=== PATIENT | male | born 1995 | race Caucasian/White ===

== ENCOUNTER 2017-10-13 16:30 | Emergency (ER) | payer OTHER ==
[~2017-10-13] VITALS: Ht 167.6 cm; Wt 71.2 kg
[2017-10-13 16:55] VITALS: BP 127/71
--- NOTE | 2017-10-13 17:06 | NUR ---
PT AMBULATED TO BED 4.
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
[2017-10-13 18:06] VITALS: BP 132/70
--- NOTE | 2017-10-13 18:06 | NUR ---
Patient discharged with v/s stable. Written and verbal after care instructions given and explained. Patient alert, oriented and verbalized understanding of instructions. Ambulatory with steady gait. All questions addressed prior to discharge. ID band removed. Patient advised to follow up with PMD. Rx of CIPROFLOXACIN 0.2% OTIC SOLUTION given. Patient educated on indication of medication including possible reaction and side effects. Opportunity to ask questions provided and answered.
== END 2017-10-13 18:06 | disposition home or self-care (01) ==
LOC: MED 16:30
DX: H72.91 Unspecified perforation of tympanic membrane, right ear (principal); H91.91 Unspecified hearing loss, right ear
CPT/HCPCS: 99283

== ENCOUNTER 2020-06-01 21:43 | Emergency (ER) | payer OTHER ==
[~2020-06-01] VITALS: Ht 165.1 cm; Wt 72.6 kg
[2020-06-01 22:21] VITALS: BP 117/67
--- NOTE | 2020-06-01 22:28 | NUR ---
PT AMBULATED TO BED 07 STEADY GAIT
--- NOTE | 2020-06-01 22:30 | NUR ---
PT TAKEN TO BED 5
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
--- NOTE | 2020-06-01 22:47 | NUR ---
Dr. Quiroga examining patient.
[2020-06-01] MEDS ORDERED: IBUPROFEN 800 MG TAB PO ONE (22:55)
--- NOTE | 2020-06-01 23:02 | NUR ---
X-Ray at bedside.
[2020-06-02 00:11] VITALS: BP 117/67
== END 2020-06-02 00:11 | disposition home or self-care (01) ==
LOC: MED 21:43
DX: S99.821A Other specified injuries of right foot, initial encounter (principal); W22.8XXA Striking against or struck by other objects, initial encounter; Y93.89 Activity, other specified; Y92.89 Other specified places as the place of occurrence of the external cause; Y99.8 Other external cause status
CPT/HCPCS: 29515; 73630; 99283; Q0092

== ENCOUNTER 2021-04-11 16:02 | Emergency (ER) | payer OTHER ==
[~2021-04-11] VITALS: Ht 167.6 cm; Wt 72.6 kg
[2021-04-11 16:30] VITALS: BP 105/60
[2021-04-11] MEDS ORDERED: DOCU-299 PO (16:53)
[2021-04-11] MEDS ORDERED: IBUP-1842 PO (16:53)
[2021-04-11 17:17] VITALS: BP 105/60
--- NOTE | 2021-04-11 17:17 | NUR ---
Patient discharged with v/s stable. Written and verbal after care instructions given and explained. Patient alert, oriented and verbalized understanding of instructions. Ambulatory with steady gait. All questions addressed prior to discharge. ID band removed. Patient advised to follow up with PMD. Rx of colace, ibuprofen given. Patient educated on indication of medication including possible reaction and side effects. Opportunity to ask questions provided and answered.
== END 2021-04-11 17:17 | disposition home or self-care (01) ==
LOC: MED 16:02
DX: S39.011A Strain of muscle, fascia and tendon of abdomen, initial encounter (principal); X50.0XXA Overexertion from strenuous movement or load, initial encounter; Y93.89 Activity, other specified; Y92.89 Other specified places as the place of occurrence of the external cause; Y99.8 Other external cause status
CPT/HCPCS: 99282

== ENCOUNTER 2022-06-21 12:46 | Emergency (ER) | payer OTHER ==
[~2022-06-21] VITALS: Ht 167.6 cm; Wt 75.7 kg
[~2022-06-21 12:46] MED LIST: DOCU-299 PO; IBUP-1842 PO
[2022-06-21 12:50] VITALS: BP 137/75
[2022-06-21] MEDS ORDERED: HYD1C TP (13:39)
[2022-06-21] MEDS ORDERED: DIPH25TA53 PO (13:39)
[2022-06-21] MEDS ORDERED: LORA10TA19 PO (13:39)
--- NOTE | 2022-06-21 13:46 | NUR ---
Patient discharged with v/s stable. Written and verbal after care instructions given and explained. Patient alert, oriented and verbalized understanding of instructions. Ambulatory with steady gait. All questions addressed prior to discharge. ID band removed. Patient advised to follow up with PMD. Rx of CLARITIN, BENADRYL, HYDROCORTISONE CREAM given. Patient educated on indication of medication including possible reaction and side effects. Opportunity to ask questions provided and answered.
== END 2022-06-21 13:46 | disposition home or self-care (01) ==
LOC: MED 12:46
DX: T78.49XA Other allergy, initial encounter (principal); Z79.1 Long term (current) use of non-steroidal anti-inflammatories (NSAID); Z79.899 Other long term (current) drug therapy; X58.XXXA Exposure to other specified factors, initial encounter
CPT/HCPCS: 99282

== ENCOUNTER 2022-06-23 21:37 | Emergency (ER) | payer OTHER ==
[~2022-06-23] VITALS: Ht 167.6 cm; Wt 77.1 kg
[~2022-06-23 21:37] MED LIST changes: +DIPH25TA53 PO; +HYD1C TP; +LORA10TA19 PO
--- NOTE | 2022-06-23 22:30 | NUR ---
PATIETN TO LOBBY
[2022-06-23 22:32] VITALS: BP 162/89
--- NOTE | 2022-06-23 22:51 | NUR ---
URINE COLLECTED AND WALKED TO LAB
[2022-06-23 22:57] LABS: APPEARANCE,URINE CLEAR (CLEAR); BILIRUBIN,URINE NEGATIVE (NEGATIVE); BLOOD, URINE 1+ (NEGATIVE); COLOR,URINE YELLOW (YELLOW); LEUKOCYTE ESTERASE ,URINE NEGATIVE (NEGATIVE); NITRITE, URINE NEGATIVE (NEGATIVE); UGLUCOSE NEGATIVE (NEGATIVE)
[2022-06-23 23:14] LABS: WBC,URINE 0-5 /HPF (0-5)
[2022-06-24] MEDS ORDERED: cefTRIAXone 1,000 MG VIAL IM ONE (00:20)
[2022-06-24] MEDS ORDERED: CEPH-588 PO (00:21)
[2022-06-24 01:30] VITALS: BP 123/80
== END 2022-06-24 01:30 | disposition home or self-care (01) ==
LOC: MED 21:37
DX: N39.0 Urinary tract infection, site not specified (principal); Z20.2 Contact with and (suspected) exposure to infections with a predominantly sexual mode of transmission
CPT/HCPCS: 81001; 87491; 96372; 99283; J0696

== ENCOUNTER 2022-07-07 15:53 | Emergency (ER) | payer OTHER ==
[~2022-07-07] VITALS: Ht 167.6 cm; Wt 79.4 kg
[~2022-07-07 15:53] MED LIST changes: +CEPH-588 PO
[2022-07-07 15:59] VITALS: BP 137/83
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
[2022-07-07 17:41] VITALS: BP 131/74
--- NOTE | 2022-07-07 17:41 | NUR ---
Patient discharged with v/s stable. Written and verbal after care instructions given. Patient verbalized understanding. Ambulatory with steady gait. All questions addressed prior to discharge. Advised to follow up with PMD.
--- NOTE | 2022-07-07 21:14 | NUR ---
The patient's care was reviewed and supervised by Bessy Wheat RN, RN.
== END 2022-07-07 17:41 | disposition home or self-care (01) ==
LOC: MED 15:53
DX: N39.0 Urinary tract infection, site not specified (principal)
CPT/HCPCS: 81002; 99282

== ENCOUNTER 2022-07-19 16:42 | Emergency (ER) | payer OTHER ==
[~2022-07-19] VITALS: Ht 167.6 cm; Wt 77.1 kg
[2022-07-19 16:57] VITALS: BP 153/83
--- NOTE | 2022-07-19 17:05 | NUR ---
Irma rivera in [facility] - 07/19/22 at 1711 by MNURBMD CALLED TO TRIAGE NO RESPONSE
[2022-07-19 19:16] LABS: BASOPHILS # (AUTO) 0.1 K/uL (0.00-0.22); BASOPHILS % (AUTO) 0.9 % (0.0-2.0); EOSINOPHILS # (AUTO) 0.1 K/uL (0-0.4); EOSINOPHILS % (AUTO) 1.9 % (0.0-4.0); HEMATOCRIT 44.2 % (36-52); HEMOGLOBIN 14.9 g/dL (12.0-18.0); LYMPHOCYTES # (AUTO) 2.1 K/uL (2.0-11.5); LYMPHOCYTES % (AUTO) 29.3 % (20.5-51.1); MEAN CORPUSCULAR HEMOGLOBIN 30 pg (27-31); MEAN CORPUSCULAR HGB CONC 34 g/dL (33-37); MEAN CORPUSCULAR VOLUME 89.4 fL (80-94); MONOCYTES # (AUTO) 0.4 K/uL (0.8-1.0); MONOCYTES % (AUTO) 5.9 % (1.7-9.3); NEUTROPHILS # (AUTO) 4.5 K/uL (1.8-7.7); PLATELET COUNT (AUTO) 231 K/uL (140-450); RED BLOOD CELL COUNT(AUTO) 4.95 MIL/uL (4.20-6.10); RED CELL DISTRIBUTION WIDTH 13.1 % (11.6-13.7); WHITE BLOOD COUNT (AUTO) 7.2 K/uL (4.8-10.8)
[2022-07-19 19:31] LABS: ANION GAP 12.5 (8-16); CARBON DIOXIDE 26.3 mmol/L (21-32); POTASSIUM 3.8 mmol/L (3.5-5.1); TOTAL BILIRUBIN 0.3 mg/dL (0.0-1.0)
--- NOTE | 2022-07-19 19:31 | NUR ---
URINE COLLECTED AND SENT TO LAB
[2022-07-19 19:44] LABS: ALBUMIN 4.4 g/dL (3.4-5.0); CREATININE 1.1 mg/dL (0.6-1.3)
[2022-07-19] MEDS ORDERED: HYDR-636 PO (20:08)
[2022-07-19] MEDS ORDERED: DIPH25TA53 PO (20:08)
[2022-07-19] MEDS ORDERED: PRED20TA5 PO (20:08)
[2022-07-19 20:15] VITALS: BP 121/79
--- NOTE | 2022-07-19 20:15 | NUR ---
Patient discharged with v/s stable. Written and verbal after care instructions given and explained. Patient alert, oriented and verbalized understanding of instructions. Ambulatory with steady gait. All questions addressed prior to discharge. ID band removed. Patient advised to follow up with PMD. Rx of BENADRYL, HYDROXYZINE, DELTASONE given. Patient educated on indication of medication including possible reaction and side effects. Opportunity to ask questions provided and answered.
== END 2022-07-19 20:15 | disposition home or self-care (01) ==
LOC: MED 16:42
DX: L29.9 Pruritus, unspecified (principal); Z79.2 Long term (current) use of antibiotics; Z79.899 Other long term (current) drug therapy; Z79.1 Long term (current) use of non-steroidal anti-inflammatories (NSAID)
CPT/HCPCS: 36415; 80053; 85025; 87491; 99283

== ENCOUNTER 2022-09-27 21:24 | Emergency (ER) | payer OTHER ==
[~2022-09-27] VITALS: Ht 167.6 cm; Wt 78.5 kg
[~2022-09-27 21:24] MED LIST changes: +HYDR-636 PO; +PRED20TA5 PO
[2022-09-27 21:36] VITALS: BP 128/67
--- NOTE | 2022-09-27 21:39 | NUR ---
TO LOBBY A/W BED AMBULATORY
[2022-09-28 00:31] LABS: BASOPHILS # (AUTO) 0.1 K/uL (0.00-0.22); BASOPHILS % (AUTO) 0.8 % (0.0-2.0); EOSINOPHILS # (AUTO) 0.2 K/uL (0-0.4); EOSINOPHILS % (AUTO) 2.6 % (0.0-4.0); HEMATOCRIT 44.2 % (36-52); HEMOGLOBIN 14.8 g/dL (12.0-18.0); LYMPHOCYTES # (AUTO) 2.2 K/uL (2.0-11.5); MEAN CORPUSCULAR HEMOGLOBIN 30 pg (27-31); MEAN CORPUSCULAR HGB CONC 33 g/dL (33-37); MEAN CORPUSCULAR VOLUME 88.7 fL (80-94); MONOCYTES # (AUTO) 0.5 K/uL (0.8-1.0); MONOCYTES % (AUTO) 8.4 % (1.7-9.3); NEUTROPHILS # (AUTO) 3.4 K/uL (1.8-7.7); NEUTROPHILS % (AUTO) 53.2 % (42.2-75.2); PLATELET COUNT (AUTO) 209 K/uL (140-450); RED BLOOD CELL COUNT(AUTO) 4.99 MIL/uL (4.20-6.10); RED CELL DISTRIBUTION WIDTH 12.9 % (11.6-13.7); WHITE BLOOD COUNT (AUTO) 6.3 K/uL (4.8-10.8)
[2022-09-28 00:35] LABS: APPEARANCE,URINE CLEAR (CLEAR); BILIRUBIN,URINE NEGATIVE (NEGATIVE); BLOOD, URINE TRACE-I (NEGATIVE); COLOR,URINE YELLOW (YELLOW); LEUKOCYTE ESTERASE ,URINE NEGATIVE (NEGATIVE); NITRITE, URINE NEGATIVE (NEGATIVE); UGLUCOSE NEGATIVE (NEGATIVE)
--- NOTE | 2022-09-28 00:36 | NUR ---
PT TAKEN TO BED 4
--- NOTE | 2022-09-28 00:41 | NUR ---
RECEIVED IN BED 4 WITH C/O A/P X 3-5 DAYS.ABD PAIN FOR 3-5 DAYS
[2022-09-28 00:43] LABS: BARBITURATE, URINE NEGATIVE ng/ml (NEG <=200); BENZODIAZEPINE, URINE NEGATIVE ng/mL (NEG <=200); CANNABINOID, URINE NEGATIVE ng/mL (NEG <=50); COCAINE, URINE NEGATIVE ng/mL (NEG <=300); OPIATE, URINE NEGATIVE ng/mL (NEG <=2000); PHENCYCLIDINE SCREEN,URINE NEGATIVE ng/mL (NEG <=25)
[2022-09-28 00:45] LABS: RBC,URINE 0-5 /HPF (0-5); WBC,URINE 0-5 /HPF (0-5)
[2022-09-28 00:49] LABS: ALBUMIN 4.8 g/dL (3.4-5.0); ANION GAP 13.2 (8-16); CARBON DIOXIDE 28.6 mmol/L (21-32); CREATININE 1.1 mg/dL (0.6-1.3); POTASSIUM 3.8 mmol/L (3.5-5.1); TOTAL BILIRUBIN 0.2 mg/dL (0.0-1.0)
--- NOTE | 2022-09-28 00:56 | NUR ---
Dr. Donis examining patient.
--- NOTE | 2022-09-28 03:10 | NUR ---
ua obtained and sent to lab
[2022-09-28] MEDS ORDERED: NAPR-1704 PO (04:02)
[2022-09-28 04:10] VITALS: BP 128/67
== END 2022-09-28 04:10 | disposition home or self-care (01) ==
LOC: MED 21:24
DX: R10.30 Lower abdominal pain, unspecified (principal)
CPT/HCPCS: 36415; 80053; 80305; 81001; 83690; 85025; 99284

== ENCOUNTER 2022-11-27 20:31 | Emergency (ER) | payer OTHER ==
[~2022-11-27] VITALS: Ht 167.6 cm; Wt 78.5 kg
[~2022-11-27 20:31] MED LIST changes: +NAPR-1704 PO
[2022-11-27 21:08] VITALS: BP 142/76
--- NOTE | 2022-11-28 02:53 | NUR ---
Dr. Vitale examining patient.
[2022-11-28] MEDS ORDERED: DEXAMETHASONE 10 MG/ML VIAL PO ONE (02:55)
[2022-11-28 03:21] VITALS: BP 132/76
--- NOTE | 2022-11-28 03:21 | NUR ---
Patient discharged with v/s stable. Written and verbal after care instructions given and explained. Patient verbalized understanding. Ambulatory with steady gait. All questions addressed prior to discharge. Advised to follow up with PMD.
== END 2022-11-28 03:21 | disposition home or self-care (01) ==
LOC: MED 21:04
DX: J04.0 Acute laryngitis (principal); Z79.899 Other long term (current) drug therapy
CPT/HCPCS: 99283; J1100

== ENCOUNTER 2023-01-25 17:31 | Emergency (ER) | payer OTHER ==
[~2023-01-25] VITALS: Ht 157.5 cm; Wt 76.7 kg
[2023-01-25 17:54] VITALS: BP 135/72
--- NOTE | 2023-01-25 18:20 | NUR ---
Patient discharged with v/s stable. Written and verbal after care instructions FOR FOLLICULITIS given and explained. Patient verbalized understanding. Ambulatory with steady gait. All questions addressed prior to discharge. Advised to follow up with PMD.
== END 2023-01-25 18:20 | disposition home or self-care (01) ==
LOC: MED 17:31
DX: R21 Rash and other nonspecific skin eruption (principal); Z79.899 Other long term (current) drug therapy
CPT/HCPCS: 87491; 99283

== ENCOUNTER 2023-01-29 22:47 | Emergency (ER) | payer OTHER ==
[~2023-01-29] VITALS: Ht 167.6 cm; Wt 79.4 kg
[2023-01-29 23:00] VITALS: BP 140/75
--- NOTE | 2023-01-29 23:03 | NUR ---
to lobby a/w bed ambulatory
[2023-01-29 23:20] LABS: APPEARANCE,URINE CLEAR (CLEAR); BILIRUBIN,URINE NEGATIVE (NEGATIVE); BLOOD, URINE TRACE-I (NEGATIVE); COLOR,URINE YELLOW (YELLOW); LEUKOCYTE ESTERASE ,URINE NEGATIVE (NEGATIVE); NITRITE, URINE NEGATIVE (NEGATIVE); UGLUCOSE NEGATIVE (NEGATIVE)
[2023-01-29 23:29] LABS: RBC,URINE 0-5 /HPF (0-5)
--- NOTE | 2023-01-30 01:50 | NUR ---
PT AMBULATES TO ROOM 5
[2023-01-30] MEDS ORDERED: PYR100 PO (02:22)
[2023-01-30] MEDS ORDERED: DOXY-690 PO (02:22)
[2023-01-30] MEDS ORDERED: ATA25 PO (02:22)
[2023-01-30] MEDS ORDERED: CEPH-588 PO (02:34)
[2023-01-30 02:36] VITALS: BP 140/75
--- NOTE | 2023-01-30 02:36 | NUR ---
Patient discharged with v/s stable. Written and verbal after care instructions given and explained. Patient alert, oriented and verbalized understanding of instructions. Ambulatory with steady gait. All questions addressed prior to discharge. ID band removed. Patient advised to follow up with PMD. Rx of KEFLEX, ATARAX given. Patient educated on indication of medication including possible reaction and side effects. Opportunity to ask questions provided and answered.
== END 2023-01-30 02:36 | disposition home or self-care (01) ==
LOC: MED 22:47
DX: R30.0 Dysuria (principal); Z79.899 Other long term (current) drug therapy
CPT/HCPCS: 81001; 87491; 99283